=== PATIENT | female | born 1965 | race Native Hawaiian/Other Pacific Islander ===

== ENCOUNTER 2021-11-08 15:25 | Emergency (ER) | payer OTHER ==
[2021-11-08] MEDS ORDERED: Bacitracin Oint 1 GM U/D Packet TOP ONE (16:36)
[2021-11-08] MEDS ORDERED: Diphtheria,Pertussis(Acell),Tetanus Vaccine 0.5 ML Syringe IM ONE (16:36)
[2021-11-08] MEDS ORDERED: Lidocaine 1% 5 ML VIAL INJECT ONE (16:36)
== END 2021-11-08 18:43 | disposition home or self-care (01) ==
LOC: JP.ED 15:25
DX: S62.666A Nondisplaced fracture of distal phalanx of right little finger, initial encounter for closed fracture (principal); I10 Essential (primary) hypertension; E11.9 Type 2 diabetes mellitus without complications; Z79.899 Other long term (current) drug therapy; Z90.49 Acquired absence of other specified parts of digestive tract; Z90.710 Acquired absence of both cervix and uterus; Z23 Encounter for immunization; W26.8XXA Contact with other sharp object(s), not elsewhere classified, initial encounter
CPT/HCPCS: 12001; 73140-26-F9; 73140-F9; 90471; 90715; 99281; 99283-25